=== PATIENT | female | born 1985 | race Caucasian/White ===

== ENCOUNTER 2017-06-08 17:44 | Emergency (ER) | payer OTHER ==
[~2017-06-08] VITALS: Ht 170.2 cm; Wt 80.0 kg
[~2017-06-08 17:44] MED LIST: AMBI10TA PO; CETI10 PO; EPIP0.3I IM; ONDA1TAB16 PO; PERC5TAB12 PO
[2017-06-08 17:49] VITALS: BP 149/105; PULSE 138; RESP 18; TEMP 98.4; O2SAT 96
[2017-06-08] MEDS ORDERED: IBUP800T23 PO (18:11)
[2017-06-08] MEDS ORDERED: DIPH25CA PO (18:11)
[2017-06-08] MEDS ORDERED: REST30CA PO (18:11)
[2017-06-08] MEDS ORDERED: CETI10 PO (18:11)
[2017-06-08] MEDS ORDERED: ADDE20 PO (18:16)
[2017-06-08] MEDS ORDERED: IBUP-232 PO (18:36)
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
[2017-06-08] MEDS ORDERED: oxyCODONE/ACETAMINOPHEN 5 MG/325 MG TAB PO ONE (18:45)
== END 2017-06-08 18:52 | disposition home or self-care (01) ==
LOC: PHED 17:44
DX: S40.022A Contusion of left upper arm, initial encounter (principal); S20.212A Contusion of left front wall of thorax, initial encounter; V43.52XA Car driver injured in collision with other type car in traffic accident, initial encounter; Y92.410 Unspecified street and highway as the place of occurrence of the external cause; Y99.8 Other external cause status
CPT/HCPCS: 99283